=== PATIENT | female | born 1930 | race Caucasian/White ===

== ENCOUNTER 2016-05-24 19:47 | Inpatient (IN) | payer OTHER ==
[2016-05-24 20:02] VITALS: BMI 28.8
--- NOTE | 2016-05-24 20:02 | PDOC ---
History of Present Illness - General History Source: Patient Exam Limitations: No Limitations <Erma Patricia - Last Filed: 05/24/16 21:06> - General History Source: Patient Exam Limitations: No Limitations <TenStacia - Last Filed: 05/28/16 09:27> - General Chief Complaint: Chest Pain Stated Complaint: CHEST PAIN Time Seen by Provider: 05/24/16 20:02 - History of Present Illness Initial Comments: 05/24/16 21:07 The patient is an 85-year-old female, with a significant past medical history of afib, hypercholesterolemia, hyperthyroidism, who presents to the ED with shoulder pain today. The pts pain has been intermittent since last night and is exacerbated with movement. Pt also reports having fluctuating BP levels. Her BP was noted to be 202/140 in the morning and quickly dropped down after taking her medication. Pts last stress test was 2 years ago and was normal. Patient reports cough. Patient denies any fever, chills, nausea, vomiting, diarrhea, abdominal pain, shortness of breath, or chest pain. Risk Assessment Consultant: Dr. Barclay (Erma Patricia) Past History <Erma Patricia - Last Filed: 05/24/16 21:06> - Past Medical History Anemia: No Asthma: No Cancer: No Cardiac Disorders: Yes (A-fib) CVA: No COPD: No CHF: No Dementia: No Diabetes: No GI Disorders: Yes (constipatipn) Disorders: No HTN: Yes Hypercholesterolemia: Yes Liver Disease: No Seizures: No Thyroid Disease: Yes (hypothyroid) - Surgical History Abdominal Surgery: No Appendectomy: No Cardiac Surgery: Yes (CARDIAC CATH) Cholecystectomy: No Lung Surgery: No Neurologic Surgery: No Orthopedic Surgery: No - Psycho/Social/Smoking Cessation Hx Anxiety: No Suicidal Ideation: No Smoking Status: No Smoking History: Never smoked Have you smoked in the past 12 months: No Number of Cigarettes Smoked Daily: 0 Information on smoking cessation initiated: No Hx Alcohol Use: No Drug/Substance Use Hx: No Substance Use Type: None Hx Substance Use Treatment: No <Stacia Caal - Last Filed: 05/28/16 09:27> - Past Medical History Allergies/Adverse Reactions: Allergies Allergy/AdvReac Type Severity Reaction Status Date / Time cortisone AdvReac Verified 05/24/16 20:00 Home Medications: Ambulatory Orders Levothyroxine [Synthroid -] 50 mcg PO DAILY 03/09/12 Rosuvastatin Calcium [Crestor] 5 mg PO HS 03/09/12 Isosorbide Mononitrate 20 mg PO DAILY 02/07/15 Rivaroxaban [Xarelto -] 15 mg PO DAILY 02/07/15 Hydrochlorothiazide [Hctz -] 12.5 mg PO DAILY 05/25/16 Losartan Potassium [Cozaar -] 50 mg PO DAILY 05/25/16 Metoprolol Succinate [Toprol Xl -] 25 mg PO DAILY 05/25/16 Cardiac Specific PMH - Complaint Specific PMHX Pacemaker: No <Stacia Caal - Last Filed: 05/28/16 09:27> Review of Systems <Erma Patricia - Last Filed: 05/24/16 21:06> <Stacia Caal - Last Filed: 05/28/16 09:27> - Review of Systems Comments:: 05/24/16 21:07 GENERAL/CONSTITUTIONAL: No: fever, chills, weakness, loss of appetite. HEAD, EYES, EARS, NOSE AND THROAT: No: change in vision, ear pain, discharge, sore throat, throat swelling. CARDIOVASCULAR: No: chest pain, lightheadedness, palpitations, syncope RESPIRATORY: No: shortness of breath, wheezing, hemoptysis, stridor. Yes: cough GASTROINTESTINAL: No: nausea, vomiting, abdominal cramping, diarrhea, rectal bleeding, constipation. GENITOURINARY: No: dysuria, hematuria, frequency, urgency, flank pain. MUSCULOSKELETAL: No: back pain, neck pain, joint pain, muscle swelling. Yes: shoulder pain SKIN AND BREASTS: No: lesions, pallor, rash or easy bruising. NEUROLOGIC: No: headache, vertigo, paresthesias, weakness ENDOCRINE: No: unexplained weight gain or loss HEMATOLOGIC/LYMPHATIC: No: anemia, easy bleeding, swelling nodes (Erma Patricia) *Physical Exam <Erma Patricia - Last Filed: 05/24/16 21:06> <Stacia Caal - Last Filed: 05/28/16 09:27> - Vital Signs Last Vital Signs Temp Pulse Resp BP Pulse Ox 97.5 F L 62 18 143/68 97 05/28/16 08:45 05/28/16 08:55 05/28/16 08:55 05/28/16 08:55 05/27/16 22:00 - Physical Exam Comments: 05/24/16 21:08 GENERAL: The patient is in no acute distress. HEAD: Normal with no signs of trauma. EYES: PERRLA, EOMI, sclera anicteric, conjunctiva clear. ENT: Ears normal, nares patent, oropharynx clear without exudates. Moist mucous membranes. NECK: Normal range of motion, supple without lymphadenopathy, JVD, or masses. LUNGS: Breath sounds equal, clear to auscultation bilaterally. No wheezes, and no crackles. HEART:Regular rate and rhythm, normal S1 and S2 without murmur, rub or gallop. ABDOMEN: Soft, nontender, normoactive bowel sounds. No guarding, no rebound. EXTREMITIES: Normal range of motion, no edema. No clubbing or cyanosis. No erythema, or tenderness. NEUROLOGICAL: Cranial nerves II through XII grossly intact. Normal speech. No focal neurological deficits. MUSCULOSKELETAL: Back non-tender to palpation, no CVA tenderness SKIN: Warm, Dry, normal turgor, no rashes or lesions noted. (Erma Patricia) Heart Score/ECG Review <Erma Patricia - Last Filed: 05/24/16 21:06> #1 ECG reviewed & interpreted by me at: 21:36 <Stacia Caal - Last Filed: 05/28/16 09:27> #1 05/24/16 21:36 Twelve-lead EKG was performed and reviewed by me. Afib rate of 99bpm. The axis is normal. The intervals are normal - QRS:106ms, QTc:454ms. There are no ST elevations. T wave inversions I, AVL, v4-v6 (compared to EKG from 2012) (Stacia Caal) ED Treatment Course - LABORATORY CBC & Chemistry Diagram: 05/26/16 05:35 05/26/16 05:35 <Stacia Caal - Last Filed: 05/28/16 09:27> - ADDITIONAL ORDERS Additional order review: 05/24/16 23:44 Urine Culture - Final Urine - Urine Clean Catch Contaminated: Please Repeat 05/24/16 20:10 RBC 5.20 MCV 89.7 MCHC 32.9 RDW 14.6 MPV 9.3 Neutrophils % 60.6 Lymphocytes % 25.4 Monocytes % 11.6 H D Eosinophils % 1.5 D Basophils % 0.9 - RADIOLOGY Radiology Studies Ordered: Category Date Time Status CHEST X-RAY PORTABLE* [RAD] Stat Radiology 05/24/16 22:39 Completed - Medications Given in the ED: ED Medications Discontinued Medications Generic Name Dose Route Start Last Admin Trade Name Kenna PRN Reason Stop Dose Admin Sodium Chloride 1,000 mls @ 75 mls/hr 05/24/16 22:16 05/24/16 22:41 Normal Saline - IV 05/25/16 11:35 75 mls/hr ASDIR STA Administration Dextrose/Sodium Chloride 1,000 mls @ 75 mls/hr 05/25/16 03:25 05/25/16 03:30 D5-1/2ns - IV 75 mls/hr ASDIR DAVINA Administration Losartan Potassium 50 mg 05/25/16 16:45 05/26/16 09:54 Cozaar - PO 50 mg DAILY DAVINA Administration Losartan Potassium 25 mg 05/26/16 22:00 05/26/16 21:49 Cozaar - PO 25 mg BID DAVINA Administration Losartan Potassium 25 mg 05/27/16 06:15 05/27/16 06:15 Cozaar - PO 05/27/16 06:16 25 mg ONCE ONE Administration Medical Decision Making <Erma Patricia - Last Filed: 05/24/16 21:06> <Stacia Caal - Last Filed: 05/28/16 09:27> - Medical Decision Making 05/24/16 20:02 A portion of this note was documented by scribe services under my direction. I have reviewed the details of the note, within reason, and agree with the documentation with the following case summary and management plan written by me. Nursing documentation reviewed and incorporated into medical decision making 05/24/16 21:37 This is an 85 yo F with a history of afib, hypercholesterolemia, hyperthyroidism , who presents to the ED with shoulder pain today. the patient states that the pain has been intermittent since last evening Pain is located in both shoulders, and the upper chest No exacerbating factors Pain worsens when her blood pressure dropps (+) cough No fever or shortness of breath No palpitations Pt was seen by her PMD 3 days ago Apparently, she was noted to have lower extremity edema She was started on lasix which has improved her lower extremity edema The patient states that her blood pressure has been labile In the morning, BP was noted to be 202/140 and then rapidly drops down after her medications. This has been present for the past year Patient reports cough. Will do labs Will do EKG Will re assess 05/24/16 21:43 05/24/16 22:50 Laboratory Tests 05/24/16 05/24/16 20:10 20:10 WBC 8.8 D Hgb 15.3 Hct 46.7 H Plt Count 241 Neutrophils % 60.6 Lymphocytes % 25.4 BUN 31 H Creatinine 1.5 H Creatine Kinase 31 Troponin I < 0.02 B-Natriuretic Peptide 2442.97 H Pt BP Low States that she gets dizzy when she stands Would send for CTA given shoulder symptoms but creatinine is elevated Will hydrate for now CXR pending Will re assess Case reviewed with hyperbaric technologist Given no fever, no focal findings patient can be hydrated and re assessed for persistent hypotension 05/25/16 00:10 Laboratory Tests 05/24/16 23:44 Urine Blood Negative Urine Nitrite Negative Ur Leukocyte Esterase Trace H Urine RBC 2 Urine WBC 13 Lactate pending Pt started on IV fluids Will admit to tele BP Improved to 103/60s Case reviewed with ICU Would hold on ICU transfer until lactate is back AND after NS bolus 05/25/16 00:40 Laboratory Tests 05/24/16 23:44 Lactic Acid 1.[address] on Tele (Stacia Caal) *DC/Admit/Observation/Transfer <Erma Patricia - Last Filed: 05/24/16 21:06> - Discharge Dispostion Admit: Yes <Stacia Caal - Last Filed: 05/28/16 09:27> Diagnosis at time of Disposition: Chest pain Qualifiers: Chest pain type: unspecified Qualified Code(s): R07.9 - Chest pain, unspecified UTI (urinary tract infection) Qualifiers: Urinary tract infection type: acute cystitis Hematuria presence: without hematuria Qualified Code(s): N30.00 - Acute cystitis without hematuria - Discharge Dispostion Condition at time of disposition: Stable - Referrals - Attestations Scribe Attestion: 05/24/16 21:08 Documentation prepared by Erma Patricia, acting as medical imaging specialist for Stacia Caal MD. (Erma Patricia)
[2016-05-24 21:54] LABS: BASOPHIL 0.9 % (0-2.0); EOSINOPHIL 1.5 % (0-4.5); MCH 29.5 pg (25.7-33.7); MCHC 32.9 g/dl (32.0-36.0); MEAN CELL VOLUME 89.7 fl (80-96); MEAN PLT VOLUME 9.3 fl (7.5-11.1); NEUTROPHILS 60.6 % (42.8-82.8); PLATELET COUNT 241 K/MM3 (134-434); RDW 14.6 % (11.6-15.6); WHITE BLOOD COUNT 8.8 K/mm3 (4.0-10.0)
[2016-05-24 22:07] LABS: INR 1.87 (0.82-1.09); PROTHROMBIN TIME (PATIENT) 20.8 SEC (9.98-11.88)
[2016-05-24] MEDS ORDERED: SODIUM CHLORIDE 1,000 ML IV STA (22:16)
[2016-05-24 22:26] LABS: ALBUMIN 3.2 g/dl (3.4-5.0); ANION GAP 8 (8-16); BILIRUBIN,TOTAL 0.5 mg/dL (0.2-1.0); CALCIUM 10.1 mg/dL (8.5-10.1); CO2 26 mmol/L (21-32); CREATININE 1.5 mg/dL (0.55-1.02); GLUCOSE,RANDOM 117 mg/dL (74-106); MAGNESIUM 2.2 mg/dL (1.8-2.4); SGOT/AST 15 U/L (15-37); SGPT/ALT 24 U/L (12-78); TOT PROT 6.3 g/dl (6.4-8.2)
[2016-05-24 22:29] LABS: ALK PHOS 110 U/L (45-117); TROPONIN I < 0.02 ng/ml (0.00-0.05)
[2016-05-24 23:53] LABS: URINE APPEARANCE CLEAR; URINE BILIRUBIN NEGATIVE (NEGATIVE); URINE BLOOD NEGATIVE (NEGATIVE); URINE COLOR YELLOW; URINE GLUCOSE (UA) NEGATIVE (NEGATIVE); URINE KETONE NEGATIVE (NEGATIVE); URINE NITRITE NEGATIVE (NEGATIVE); URINE PROTEIN NEGATIVE (NEGATIVE); URINE UROBILINOGEN NEGATIVE E.U./dl (0.2-1.0)
[2016-05-24 23:56] LABS: URINE LEUK ESTERASE TRACE (NEGATIVE)
[2016-05-24 23:57] LABS: URINE HYALINE CAST 5 /lpf; URINE MUCUS RARE; URINE RBC 2 /hpf (0-3); URINE WBC 13 /hpf (3-5)
[2016-05-25] MEDS ORDERED: DEXTROSE 5%-0.45% SALINE 1,000 ML IV SCH (03:25)
[2016-05-25] MEDS: LEVOTHYROXINE NA 50 MCG TABLET (FP) PO SCH (06:18)
[2016-05-25 07:32] LABS: BASOPHIL 0.4 % (0-2.0); EOSINOPHIL 1.6 % (0-4.5); MCH 30.1 pg (25.7-33.7); MCHC 33.1 g/dl (32.0-36.0); MEAN CELL VOLUME 90.9 fl (80-96); MEAN PLT VOLUME 9.6 fl (7.5-11.1); NEUTROPHILS 62.6 % (42.8-82.8); PLATELET COUNT 192 K/MM3 (134-434); RDW 14.7 % (11.6-15.6); WHITE BLOOD COUNT 8.3 K/mm3 (4.0-10.0)
[2016-05-25 07:59] LABS: ANION GAP 9 (8-16); BILIRUBIN,TOTAL 0.7 mg/dL (0.2-1.0); CALCIUM 9.3 mg/dL (8.5-10.1); CO2 23 mmol/L (21-32); CREATININE 1.3 mg/dL (0.55-1.02); GLUCOSE,RANDOM 115 mg/dL (74-106); SGOT/AST 16 U/L (15-37); SGPT/ALT 20 U/L (12-78); TOT PROT 5.6 g/dl (6.4-8.2)
[2016-05-25 08:02] LABS: ALK PHOS 99 U/L (45-117); TROPONIN I < 0.02 ng/ml (0.00-0.05)
[2016-05-25] MEDS: RIVAROXABAN 15 MG TABLET PO SCH (09:14)
--- NOTE | 2016-05-25 09:27 | PN ---
Progress Note (short form) - Note Progress Note: Cardiology Consult Dictated Briefly, 85F well known to our service from the office with non-obstructive CAD on cath '11, chronic labile HTN, CKD, chronic diastolic CHF now admitted with a multitude of complaints including labile BP at home, left shoulder pain and dizziness. Thus far, cardiac enzymes negative with no new arrhythmias noted. Plan: 1. Labile BP: would check orthostatics 2. D/C IVF 3. Based on orthostatic findings and clinical course, would try to resume PO Lasix within next 24-28 hours. On admission, given IVF due to elevated BUN/Creat ratio 3. Echo 4. Chest CTA planned to rule out aortic pathology (chest pain with back and shoulder component) when creatinine allows. 5. Would likely stress as inpatient prior to discharge if she allows, has refused outpatient stress testing recently.
[2016-05-25] MEDS: METOPROLOL SUCCINATE 25 MG TAB.SR.24H (FP) PO SCH (16:56)
[2016-05-25] MEDS: LOSARTAN POTASSIUM 50 MG TABLET (FP) PO SCH (16:56)
--- NOTE | 2016-05-25 20:13 | HP ---
Admitting History and Physical - Admission Chief Complaint: Labile HTN History of Present Illness: Pt is a 85 y/o female w/ PMH significant for HTN, HLD, CAD, Afib, chronic diastolic heart failure, CKD and hyperthyroidism who presented to the ER w/ multiple complaints including dizziness. When pt awoke she found her BP to be 202/140 however in the ER she was found to have diastolic BP of 158. She denies any chest pain although she is complaining of lt shoulder pain. No SOB and no palpitations. History Source: Patient - Past Medical History Cardiovascular: Yes: AFIB, CAD, CHF, HTN, Hyperlipdemia Renal/: Yes: Renal Failure ...: No Endocrine: Yes: Hyperthyroidism - Past Surgical History Past Surgical History: Yes: None - Smoking History Smoking history: Never smoked Have you smoked in the past 12 months: No Aproximately how many cigarettes per day: 0 - Alcohol/Substance Use Hx Alcohol Use: No - Social History ADL: Independent History of Recent Travel: No Home Medications - Allergies Allergies/Adverse Reactions: Allergies Allergy/AdvReac Type Severity Reaction Status Date / Time cortisone AdvReac Verified 05/24/16 20:00 - Home Medications Home Medications: Ambulatory Orders Levothyroxine [Synthroid -] 50 mcg PO DAILY 03/09/12 Rosuvastatin Calcium [Crestor] 5 mg PO HS 03/09/12 Isosorbide Mononitrate 20 mg PO DAILY 02/07/15 Rivaroxaban [Xarelto -] 15 mg PO DAILY 02/07/15 Hydrochlorothiazide [Hctz -] 12.5 mg PO DAILY 05/25/16 Losartan Potassium [Cozaar -] 50 mg PO DAILY 05/25/16 Metoprolol Succinate [Toprol Xl -] 25 mg PO DAILY 05/25/16 Family Disease History - Family Disease History Family History: Unremarkable Family Disease History: Heart Disease: Son Review of Systems - Review of Systems Constitutional: reports: Other (Dizziness) Eyes: reports: No Symptoms HENT: reports: No Symptoms Neck: reports: No Symptoms Cardiovascular: reports: No Symptoms Respiratory: reports: No Symptoms Gastrointestinal: reports: No Symptoms Physical Examination Vital Signs: Vital Signs Temperature 98.1 F 05/25/16 15:00 Pulse Rate 69 05/25/16 15:00 Respiratory Rate 18 05/25/16 15:00 Blood Pressure 188/77 05/25/16 15:00 O2 Sat by Pulse Oximetry (%) 94 L 05/25/16 09:00 Constitutional: Yes: Well Nourished Eyes: Yes: WNL HENT: Yes: WNL Neck: Yes: WNL Cardiovascular: Yes: WNL, Regular Rate and Rhythm Respiratory: Yes: WNL, Regular, CTA Bilaterally Gastrointestinal: Yes: WNL, Normal Bowel Sounds, Soft, Abdomen, Obese Musculoskeletal: Yes: WNL Extremities: Yes: WNL Edema: No Neurological: Yes: WNL, Alert, Oriented Labs: CBC, BMP 05/25/16 05:35 05/25/16 05:35 Problem List - Problems (1) Chest pain Code(s): R07.9 - CHEST PAIN, UNSPECIFIED Qualifiers: Chest pain type: unspecified Qualified Code(s): R07.9 - Chest pain, unspecified Assessment/Plan 1. Labile HTN Pt initially started on IVF due to elevated bun/creatinine BP meds held and will be restarted as needed Cardio consult 2. HLD/CAD Cont crestor 3. Hyperthyroidism Cont levothyroxine Check TSH
[2016-05-25] MEDS ORDERED: PT OWN MED DRAWER 7, Y5N ONE (21:46)
[2016-05-25] MEDS: ROSUVASTATIN CA 5 MG TABLET (FP) PO SCH (23:08)
[2016-05-26] MEDS: LEVOTHYROXINE NA 50 MCG TABLET (FP) PO SCH (06:44)
[2016-05-26 07:18] LABS: BASOPHIL 0.5 % (0-2.0); EOSINOPHIL 3.3 % (0-4.5); MCH 30.2 pg (25.7-33.7); MCHC 33.4 g/dl (32.0-36.0); MEAN CELL VOLUME 90.2 fl (80-96); MEAN PLT VOLUME 9.2 fl (7.5-11.1); NEUTROPHILS 45.6 % (42.8-82.8); PLATELET COUNT 181 K/MM3 (134-434); RDW 14.9 % (11.6-15.6); WHITE BLOOD COUNT 5.4 K/mm3 (4.0-10.0)
[2016-05-26 07:45] LABS: BILIRUBIN,TOTAL 0.9 mg/dL (0.2-1.0); CALCIUM 9.9 mg/dL (8.5-10.1); CREATININE 1.2 mg/dL (0.55-1.02); TOT PROT 5.9 g/dl (6.4-8.2)
[2016-05-26 07:54] LABS: THYROID STIMULATING HORMONE 1.9 uIU/ml (0.358-3.74)
[2016-05-26] MEDS: METOPROLOL SUCCINATE 25 MG TAB.SR.24H (FP) PO SCH (09:54)
[2016-05-26] MEDS: RIVAROXABAN 15 MG TABLET PO SCH (09:54)
[2016-05-26] MEDS: LOSARTAN POTASSIUM 50 MG TABLET (FP) PO SCH (09:54)
--- NOTE | 2016-05-26 09:55 | CONS ---
DATE OF CONSULTATION: 05/25/2016 The consultation was requested by Dr. Neal for chest pain. The patient is an 85-year-old female, well known to our service from office care. She has a past medical history of chronic hypertension, labile hypertension at times, hypertensive heart disease, chronic diastolic CHF, paroxysmal atrial fibrillation, maintained on Xarelto, nonobstructive coronary artery disease, based on catheterization in 2010, with chronic presumed small-vessel disease and chronic angina on that basis, hyperlipidemia, hypothyroidism, who now presents to the hospital with multiple complaints similar to previous chronic complaints she has had through the years. She comes in complaining of labile hypertension with blood pressure initially over 200 systolic in the emergency department. She also felt dizzy and had an episode of fleeting substernal chest pain and left shoulder pain as well as central back pain that occurred within the 48 hours prior to presentation. She now feels better, with resolution of the chest and shoulder pain. She is no longer dizzy. Her BUN and creatinine ratio were noted to be elevated from baseline on presentation and she was given IV fluids overnight. A CTA of the chest was ordered in the emergency department, given her chest and back pain complaints, to rule out aortic pathology. It has been placed on hold due to her elevated creatinine. This morning she appears comfortable and at baseline. She is in no acute distress. Her past medical history is as outlined above. She is allergic to CORTISONE. Home medications include Toprol XL 25 mg daily, losartan 50 mg daily, hydrochlorothiazide 12.5 mg daily, Crestor 5 mg daily, Xarelto 15 mg, Synthroid 50 mcg daily, Imdur 20 mg daily. Family history is noncontributory. SOCIAL HISTORY: Lives with her son. She is . No alcohol, tobacco, or illicit drugs. PHYSICAL EXAMINATION: Vital signs: Afebrile, temperature 97.9. Pulse 59 to 61. Current blood pressure 126/50, on presentation 128/76. Patient reports systolic pressure of 200 at home. O2 saturation has been 97 to 100 on room air. Neck: Supple. No JVD, no bruit. Heart: S1, 2. Regular. Chest: With decreased breath sounds at the bases. Abdomen: Soft, nontender. Extremities: No edema. Pulses: 2+ carotid, 2+ radial, and 2+ dorsalis pedis pulses bilaterally. EKG: Atrial fibrillation with left ventricular hypertrophy and secondary ST changes. Chest x-ray, read by Dr. Mak: No acute pathology or changes since January 2015. LABORATORIES: White count 8.3, hematocrit 44.2, platelet count 192, INR 1.87, sodium 145, potassium 3.9, BUN 32, creatinine 1.3. LFTs normal. CK and troponin negative x2 sets. BNP 2442. IMPRESSION: An 85-year-old female with nonobstructive coronary artery disease, chronic labile hypertension, chronic renal insufficiency, chronic diastolic dysfunction, now admitted with a multitude of complaints, including labile blood pressure, episodes of left shoulder and possibly chest pain, intermittent dizziness. Thus far, cardiac enzymes are negative, with no new arrhythmias noted on telemetry. PLAN: 1. Regarding her chronic labile blood pressure, will check orthostatics. Hold Cozaar for now. Hold Imdur for now. Monitor on telemetry to determine possibly the need to adjust Toprol. 2. Discontinue IV fluids. 3. Based on orthostatic findings and clinical course, would try to resume p.o. Lasix within the next 48 hours, as she is prone to diastolic CHF. On admission, she was given IV fluids overnight by the ER due to elevated BUN/creatinine ratio, which have now improved. 4. Echocardiogram. 5. A CTA of the chest is planned to rule out aortic pathology, given her chest pain and back and shoulder complaints. This will be performed when creatinine allows, does not appear to be acutely needed at this time. 6. Would likely recommend inpatient stress test prior to discharge if she allows, given her chronic chest pain complaints. Most recently she was seen in the office by Dr. Timmons and offered a stress test, which she refused. Thank you for the consultation. ELSA BRADLEY M.D. [id number]
--- NOTE | 2016-05-26 10:54 | PN ---
Progress Note, Physician - Current Medication List Current Medications: Active Medications Levothyroxine Sodium (Synthroid -) 50 mcg PO DAILY@0700 [facility] Last Admin: 05/26/16 06:44 Dose: 50 mcg Losartan Potassium (Cozaar -) 50 mg PO DAILY [facility] Last Admin: 05/26/16 09:54 Dose: 50 mg Metoprolol Succinate (Toprol Xl -) 25 mg PO DAILY [facility] Last Admin: 05/26/16 09:54 Dose: 25 mg Rivaroxaban (Xarelto -) 15 mg PO DAILY [facility] Last Admin: 05/26/16 09:54 Dose: 15 mg Rosuvastatin Calcium (Crestor -) 5 mg PO HS [facility] Last Admin: 05/25/16 23:08 Dose: 5 mg - Objective Vital Signs: Vital Signs Temperature 98.2 F 05/26/16 05:29 Pulse Rate 54 L 05/26/16 08:57 Respiratory Rate 18 05/26/16 08:57 Blood Pressure 182/77 05/26/16 08:57 O2 Sat by Pulse Oximetry (%) 95 05/26/16 09:00 Labs: CBC, BMP 05/26/16 05:35 05/26/16 05:35 INR, PTT INR 1.87 (0.82-1.09) H D 05/24/16 20:10 Assessment/Plan 85 year old woman with a history of non-obstructive CAD on , chronic labile HTN, CKD, chronic diastolic CHF now admitted with a multitude of complaints including labile BP at home, left shoulder pain and dizziness. Plan: Labile BP: 1 reading of 77/44 on 05/24, since then BP has been elevated -check orthostatic BP -cont Toprol and losartan Chronic diastolic CHF -currently euvolemic -once BP controlled and if does not display orthostatic hypotension then can resume po Lasix Chest pain-atypical -f/up echo -f/up CTA chest as ordered -plan for persantine stress test prior to discharge, likely tomorrow, need CTA chest prior to stress test
--- NOTE | 2016-05-26 14:21 | PN ---
Progress Note (short form) - Note Progress Note: Pts orthostatic bp checked and showed a significant drop from SBP 180mmHg lying down to 120mmhg standing. Difficult situation to treat uncontrolled HTN while lying but with large drop and relative orthostatic hypotension on standing. -Will change losartan to 25mg bid -cont toprol -avoid diuretics for now -will need to adjust medications to attempt to achieve adequate HTN control approx SBP 150mmHg while avoid orthostatic hypotension.
--- NOTE | 2016-05-26 16:15 | EKG ---
Test Reason : Blood Pressure : / mmHG Vent. Rate : 099 BPM Atrial Rate : 375 BPM P-R Int : 000 ms QRS Dur : 106 ms QT Int : 354 ms P-R-T Axes : 000 014 189 degrees QTc Int : 454 ms ATRIAL FIBRILLATION MINIMAL VOLTAGE CRITERIA FOR LVH, MAY BE NORMAL VARIANT CANNOT RULE OUT INFERIOR INFARCT , AGE UNDETERMINED ABNORMAL ECG WHEN COMPARED WITH ECG OF 07-FEB-2015 12:10, ATRIAL FIBRILLATION HAS REPLACED SINUS RHYTHM T WAVE VARIATION Confirmed by BLAIRE JOY MD ([id number]) on 05/26/2016 4:15:33 PM Referred By: Confirmed By:BLAIRE JOY MD
[2016-05-26] MEDS: ROSUVASTATIN CA 5 MG TABLET (FP) PO SCH (21:49)
[2016-05-26] MEDS: LOSARTAN POTASSIUM 25 MG TABLET PO SCH (21:49)
--- NOTE | 2016-05-26 23:08 | PN ---
Progress Note, Physician History of Present Illness: Pt w/ fluctuating BP - Current Medication List Current Medications: Active Medications Levothyroxine Sodium (Synthroid -) 50 mcg PO DAILY@0700 [facility] Last Admin: 05/26/16 06:44 Dose: 50 mcg Losartan Potassium (Cozaar -) 25 mg PO BID [facility] Last Admin: 05/26/16 21:49 Dose: 25 mg Metoprolol Succinate (Toprol Xl -) 25 mg PO DAILY [facility] Last Admin: 05/26/16 09:54 Dose: 25 mg Rivaroxaban (Xarelto -) 15 mg PO DAILY [facility] Last Admin: 05/26/16 09:54 Dose: 15 mg Rosuvastatin Calcium (Crestor -) 5 mg PO HS [facility] Last Admin: 05/26/16 21:49 Dose: 5 mg - Objective Vital Signs: Vital Signs Temperature 98.1 F 05/26/16 16:25 Pulse Rate 52 L 05/26/16 16:25 Respiratory Rate 18 05/26/16 16:25 Blood Pressure 152/86 05/26/16 16:25 O2 Sat by Pulse Oximetry (%) 95 05/26/16 09:00 Constitutional: Yes: Well Nourished Neck: Yes: Supple Cardiovascular: Yes: WNL, Regular Rate and Rhythm Respiratory: Yes: WNL, Regular, CTA Bilaterally Gastrointestinal: Yes: WNL, Normal Bowel Sounds, Soft Labs: CBC, BMP 05/26/16 05:35 05/26/16 05:35 INR, PTT INR 1.87 (0.82-1.09) H D 05/24/16 20:10 Problem List - Problems (1) Hypertension Assessment/Plan: Pt w/ orthostatic hypotension As per cardio Antihypertensives being adjusted Code(s): I10 - ESSENTIAL (PRIMARY) HYPERTENSION Assessment/Plan 1.HLD/CAD Cont lipitor Will ada ASA 3.AFIB Heart rate stable Parosymal afib Cont xarelto 2.Hypothyroidism Cont levothyroxine
[2016-05-27] MEDS: LEVOTHYROXINE NA 50 MCG TABLET (FP) PO SCH (06:00)
[2016-05-27] MEDS: LOSARTAN POTASSIUM 25 MG TABLET PO SCH ×2 (06:13→09:25)
[2016-05-27] MEDS ORDERED: LOSARTAN POTASSIUM 25 MG TABLET PO ONE (06:15)
[2016-05-27] MEDS ORDERED: PT OWN MED DRAWER 7, Y5N ONE (08:54)
--- NOTE | 2016-05-27 08:57 | PN ---
Progress Note, Physician Chief Complaint: sitting in chair, comfortably eating farida Has right shoulder pain, likely arthritic No further CP Vitals done yesterday late afternoon showed sig orthostatic changes. TELE: Reviewed--Mild resting sinus alfreda in mid 50s Echo reviewed: Nl LVEF, moderate MR History of Present Illness: supine BPs remain elevated, above goa in 160-180 range - Current Medication List Current Medications: Active Medications Levothyroxine Sodium (Synthroid -) 50 mcg PO DAILY@0700 [facility] Last Admin: 05/27/16 06:00 Dose: 50 mcg Losartan Potassium (Cozaar -) 25 mg PO BID [facility] Last Admin: 05/26/16 21:49 Dose: 25 mg Metoprolol Succinate (Toprol Xl -) 25 mg PO DAILY [facility] Last Admin: 05/26/16 09:54 Dose: 25 mg Rivaroxaban (Xarelto -) 15 mg PO DAILY [facility] Last Admin: 05/26/16 09:54 Dose: 15 mg Rosuvastatin Calcium (Crestor -) 5 mg PO HS [facility] Last Admin: 05/26/16 21:49 Dose: 5 mg - Objective Vital Signs: Vital Signs Temperature 97.6 F 05/27/16 06:00 Pulse Rate 56 L 05/27/16 06:00 Respiratory Rate 18 05/27/16 06:00 Blood Pressure 180/76 05/27/16 06:00 O2 Sat by Pulse Oximetry (%) 95 05/26/16 22:00 Constitutional: Yes: Calm Eyes: Yes: Conjunctiva Clear Cardiovascular: Yes: Regular Rate and Rhythm Respiratory: Yes: CTA Bilaterally Gastrointestinal: Yes: Soft Edema: No Neurological: Yes: Alert, Oriented ...Motor Strength: WNL Labs: CBC, BMP 05/26/16 05:35 05/26/16 05:35 INR, PTT INR 1.87 (0.82-1.09) H D 05/24/16 20:10 Laboratory Tests 05/24/16 05/25/16 05/26/16 20:10 05:35 05:35 Sodium 144 Potassium 4.2 BUN 30 H Creatinine 1.2 H Troponin I < 0.02 < 0.02 Assessment/Plan IMP: Orthostatic hypotension Atypical CP Moderate MR PAF REC: 1. Orthostatic hypotension: moderate supine hypertension poses a problem for evening and nocturnal BP control. Would try to gently escalate evening dose of --Losartan to 50mg to provide coverage in late evening and through the night while she is supine. Continue 25mg in AM. She may continue to have drops in SBP when standing, but if not symptomatic, can follow as outpatient and advise her on lifestyle measures to avoid orthostatic sx (slow rising etc) 2. Atypical CP: -Cardiac enzymes negative with normal LVEF, h/o non-obstx CAD -Plan for Persantine MIBI in AM 3. Moderate MR: -Cont. ARB as tolerated for afterload reduction -yearly echo f/u 4. PAF: -To continue Xarelto, adjusted for GFR -Remains in NSR, would not titrate Toprol further as her baseline heart rate is in the mid 50s in sinus
[2016-05-27] MEDS: RIVAROXABAN 15 MG TABLET PO SCH (09:25)
[2016-05-27] MEDS: METOPROLOL SUCCINATE 25 MG TAB.SR.24H (FP) PO SCH (09:25)
[2016-05-27] MEDS: DOCUSATE SODIUM 100 MG CAPSULE (FP) PO SCH ×2 (17:14→21:20)
[2016-05-27] MEDS: POLYETHYLENE GLYCOL 3350 119 GM BTL PO SCH (17:14)
[2016-05-27] MEDS: LOSARTAN POTASSIUM 50 MG TABLET (FP) PO SCH (19:16)
[2016-05-27] MEDS: KETOROLAC TROMETHAMINE 30 MG/1 ML VIAL IVPUSH PRN (21:20)
[2016-05-27] MEDS: ROSUVASTATIN CA 5 MG TABLET (FP) PO SCH (21:21)
--- NOTE | 2016-05-27 21:42 | PN ---
Progress Note, Physician History of Present Illness: No new complaints - Current Medication List Current Medications: Active Medications Docusate Sodium (Colace -) 100 mg PO TID [facility] Last Admin: 05/27/16 21:20 Dose: 100 mg Hydralazine HCl (Apresoline Injection -) 10 mg IVPUSH Q2H PRN PRN Reason: SBP OF 170 OR GREATER Ketorolac Tromethamine (Toradol Injection -) 30 mg IVPUSH Q6H PRN PRN Reason: PAIN Stop: 06/01/16 20:51 Last Admin: 05/27/16 21:20 Dose: 30 mg Levothyroxine Sodium (Synthroid -) 50 mcg PO DAILY@0700 [facility] Last Admin: 05/27/16 06:00 Dose: 50 mcg Losartan Potassium (Cozaar -) 50 mg PO DAILY@2000 [facility] Last Admin: 05/27/16 19:16 Dose: 50 mg Losartan Potassium (Cozaar -) 25 mg PO DAILY [facility] Last Admin: 05/27/16 09:25 Dose: 25 mg Metoprolol Succinate (Toprol Xl -) 25 mg PO DAILY [facility] Last Admin: 05/27/16 09:25 Dose: 25 mg Polyethylene Glycol (Miralax (For Daily Use) -) 17 gm PO DAILY [facility] Last Admin: 05/27/16 17:14 Dose: 17 grams Rivaroxaban (Xarelto -) 15 mg PO DAILY [facility] Last Admin: 05/27/16 09:25 Dose: 15 mg Rosuvastatin Calcium (Crestor -) 5 mg PO HS [facility] Last Admin: 05/27/16 21:21 Dose: 5 mg - Objective Vital Signs: Vital Signs Temperature 97.4 F L 05/27/16 14:29 Pulse Rate 51 L 05/27/16 14:29 Respiratory Rate 18 05/27/16 20:38 Blood Pressure 166/62 05/27/16 14:29 O2 Sat by Pulse Oximetry (%) 91 L 05/27/16 20:38 Neck: Yes: Supple Cardiovascular: Yes: WNL, Regular Rate and Rhythm Respiratory: Yes: WNL, Regular, CTA Bilaterally Gastrointestinal: Yes: WNL, Normal Bowel Sounds, Soft Labs: CBC, BMP 05/26/16 05:35 05/26/16 05:35 INR, PTT INR 1.87 (0.82-1.09) H D 05/24/16 20:10 Problem List - Problems (1) Hypertension Assessment/Plan: Pt w/ orthostatic hypotension DC planning for am As per cardio Code(s): I10 - ESSENTIAL (PRIMARY) HYPERTENSION (2) Afib Assessment/Plan: Paroxysmal afib Cont xarelto Heart rate controlled Code(s): I48.91 - UNSPECIFIED ATRIAL FIBRILLATION (3) HLD (hyperlipidemia) Assessment/Plan: Cont crestor Code(s): E78.5 - HYPERLIPIDEMIA, UNSPECIFIED (4) Hypothyroidism Assessment/Plan: Cont levothyroxine Code(s): E03.9 - HYPOTHYROIDISM, UNSPECIFIED
[2016-05-27] MEDS: hydrALAZINE HCL 20 MG/ML VIAL IVPUSH PRN (22:32)
[2016-05-28] MEDS: hydrALAZINE HCL 20 MG/ML VIAL IVPUSH PRN (00:58)
[2016-05-28] MEDS ORDERED: PT OWN MED DRAWER 7, Y5N ONE ×2 (05:43→13:19)
[2016-05-28] MEDS: DOCUSATE SODIUM 100 MG CAPSULE (FP) PO SCH ×3 (06:19→22:04)
[2016-05-28] MEDS: KETOROLAC TROMETHAMINE 30 MG/1 ML VIAL IVPUSH PRN (06:19)
[2016-05-28] MEDS: LEVOTHYROXINE NA 50 MCG TABLET (FP) PO SCH (06:19)
[2016-05-28] MEDS: LOSARTAN POTASSIUM 25 MG TABLET PO SCH (09:09)
[2016-05-28] MEDS: METOPROLOL SUCCINATE 25 MG TAB.SR.24H (FP) PO SCH (09:09)
--- NOTE | 2016-05-28 09:14 | PN ---
Progress Note, Physician Chief Complaint: events noted Suspected acute anxiety episode last evening. History of Present Illness: late evening and early AM BPs remain high with recorded readings during day ok, with orthostatic changes - Current Medication List Current Medications: Active Medications Docusate Sodium (Colace -) 100 mg PO TID [facility] Last Admin: 05/28/16 06:19 Dose: 100 mg Hydralazine HCl (Apresoline Injection -) 10 mg IVPUSH Q2H PRN PRN Reason: SBP OF 170 OR GREATER Last Admin: 05/28/16 00:58 Dose: 10 mg Dipyridamole 43.53 mg/ (Dextrose) 43.53 mls @ 652.95 mls/hr IVPB ONCE ONE Stop: 05/28/16 10:03 Ketorolac Tromethamine (Toradol Injection -) 30 mg IVPUSH Q6H PRN PRN Reason: PAIN Stop: 06/01/16 20:51 Last Admin: 05/28/16 06:19 Dose: 30 mg Levothyroxine Sodium (Synthroid -) 50 mcg PO DAILY@0700 [facility] Last Admin: 05/28/16 06:19 Dose: 50 mcg Losartan Potassium (Cozaar -) 50 mg PO DAILY@2000 [facility] Last Admin: 05/27/16 19:16 Dose: 50 mg Losartan Potassium (Cozaar -) 25 mg PO DAILY [facility] Last Admin: 05/28/16 09:09 Dose: 25 mg Metoprolol Succinate (Toprol Xl -) 25 mg PO DAILY [facility] Last Admin: 05/28/16 09:09 Dose: 25 mg Polyethylene Glycol (Miralax (For Daily Use) -) 17 gm PO DAILY [facility] Last Admin: 05/27/16 17:14 Dose: 17 grams Rivaroxaban (Xarelto -) 15 mg PO DAILY [facility] Last Admin: 05/27/16 09:25 Dose: 15 mg Rosuvastatin Calcium (Crestor -) 5 mg PO HS [facility] Last Admin: 05/27/16 21:21 Dose: 5 mg - Objective Vital Signs: Vital Signs Temperature 97.5 F L 05/28/16 08:45 Pulse Rate 62 05/28/16 08:55 Respiratory Rate 18 05/28/16 08:55 Blood Pressure 143/68 05/28/16 08:55 O2 Sat by Pulse Oximetry (%) 97 05/27/16 22:00 Constitutional: Yes: No Distress Cardiovascular: Yes: Regular Rate and Rhythm Respiratory: Yes: CTA Bilaterally Gastrointestinal: Yes: Soft Edema: No Neurological: Yes: Alert ...Motor Strength: WNL Labs: CBC, BMP 05/26/16 05:35 05/26/16 05:35 INR, PTT INR 1.87 (0.82-1.09) H D 05/24/16 20:10 - ....Imaging EKG: Image Reviewed (TELE: mild sinus alfreda in 50s, no pauses) Assessment/Plan IMP: Orthostatic hypotension Atypical CP Moderate MR PAF REC: 1. Orthostatic hypotension: Late evening and early AM BP remains high, with concomitant anxiety sx. Will Continue Losartan 50mg Qhs and add Norvasc 2.5 mg in evening, to be titrated to BP. She may continue to have drops in SBP when standing, but if not symptomatic, can follow as outpatient and advise her on lifestyle measures to avoid orthostatic sx (slow rising etc) 2. Atypical CP: -Cardiac enzymes negative with normal LVEF, h/o non-obstx CAD -Plan for Persantine MIBI today. 3. Moderate MR: -Cont. ARB as tolerated for afterload reduction -yearly echo f/u 4. PAF: -To continue Xarelto, adjusted for GFR -Remains in NSR, would not titrate Toprol further as her baseline heart rate is in the mid 50s in sinus
[2016-05-28] MEDS ORDERED: DIPYRIDAMOLE STRESS TEST IVPB ONE (10:00)
[2016-05-28] MEDS ORDERED: WATER IVPB ONE (10:00)
[2016-05-28] MEDS ORDERED: DEXTROSE 5% IVPB ONE (10:00)
--- NOTE | 2016-05-28 12:04 | EKG ---
Test Reason : Blood Pressure : / mmHG Vent. Rate : 070 BPM Atrial Rate : 070 BPM P-R Int : 160 ms QRS Dur : 092 ms QT Int : 408 ms P-R-T Axes : 076 036 132 degrees QTc Int : 440 ms POOR DATA QUALITY, INTERPRETATION MAY BE ADVERSELY AFFECTED NORMAL SINUS RHYTHM NONSPECIFIC ST AND T WAVE ABNORMALITY ABNORMAL ECG WHEN COMPARED WITH ECG OF 24-MAY-2016 20:09, SINUS RHYTHM HAS REPLACED ATRIAL FIBRILLATION T WAVE INVERSION NO LONGER EVIDENT IN INFERIOR LEADS NONSPECIFIC T WAVE ABNORMALITY HAS REPLACED INVERTED T WAVES IN LATERAL LEADS Confirmed by SPENCER GARCIA MD ([id number]) on 05/28/2016 12:03:52 PM Referred By: Confirmed By:SPENCER GARCIA MD
[2016-05-28] MEDS: POLYETHYLENE GLYCOL 3350 119 GM BTL PO SCH (13:41)
[2016-05-28] MEDS: RIVAROXABAN 15 MG TABLET PO SCH (13:41)
--- NOTE | 2016-05-28 19:27 | PN ---
Progress Note, Physician - Current Medication List Current Medications: Active Medications Amlodipine Besylate (Norvasc -) 2.5 mg PO HS [facility] Docusate Sodium (Colace -) 100 mg PO TID [facility] Last Admin: 05/28/16 13:41 Dose: 100 mg Hydralazine HCl (Apresoline Injection -) 10 mg IVPUSH Q2H PRN PRN Reason: SBP OF 170 OR GREATER Last Admin: 05/28/16 00:58 Dose: 10 mg Ketorolac Tromethamine (Toradol Injection -) 30 mg IVPUSH Q6H PRN PRN Reason: PAIN Stop: 06/01/16 20:51 Last Admin: 05/28/16 06:19 Dose: 30 mg Levothyroxine Sodium (Synthroid -) 50 mcg PO DAILY@0700 [facility] Last Admin: 05/28/16 06:19 Dose: 50 mcg Losartan Potassium (Cozaar -) 50 mg PO DAILY@2000 [facility] Last Admin: 05/27/16 19:16 Dose: 50 mg Losartan Potassium (Cozaar -) 25 mg PO DAILY [facility] Last Admin: 05/28/16 09:09 Dose: 25 mg Metoprolol Succinate (Toprol Xl -) 25 mg PO DAILY [facility] Last Admin: 05/28/16 09:09 Dose: 25 mg Polyethylene Glycol (Miralax (For Daily Use) -) 17 gm PO DAILY [facility] Last Admin: 05/28/16 13:41 Dose: 17 grams Rivaroxaban (Xarelto -) 15 mg PO DAILY [facility] Last Admin: 05/28/16 13:41 Dose: 15 mg Rosuvastatin Calcium (Crestor -) 5 mg PO HS [facility] Last Admin: 05/27/16 21:21 Dose: 5 mg - Objective Vital Signs: Vital Signs Temperature 97.8 F 05/28/16 15:00 Pulse Rate 56 L 05/28/16 15:00 Respiratory Rate 18 05/28/16 15:00 Blood Pressure 124/85 05/28/16 15:00 O2 Sat by Pulse Oximetry (%) 97 05/28/16 12:44 Labs: CBC, BMP 05/26/16 05:35 05/26/16 05:35 INR, PTT INR 1.87 (0.82-1.09) H D 05/24/16 20:10 Problem List - Problems (1) Hypertension Code(s): I10 - ESSENTIAL (PRIMARY) HYPERTENSION (2) Afib Code(s): I48.91 - UNSPECIFIED ATRIAL FIBRILLATION (3) HLD (hyperlipidemia) Code(s): E78.5 - HYPERLIPIDEMIA, UNSPECIFIED (4) Hypothyroidism Code(s): E03.9 - HYPOTHYROIDISM, UNSPECIFIED
[2016-05-28] MEDS ORDERED: amLODIPine BESYLATE 2.5 MG TABLET (FP) PO SCH ×2 (20:00→22:00)
[2016-05-28] MEDS: LOSARTAN POTASSIUM 50 MG TABLET (FP) PO SCH (20:39)
[2016-05-28] MEDS: ROSUVASTATIN CA 5 MG TABLET (FP) PO SCH (22:04)
[2016-05-29] MEDS: DOCUSATE SODIUM 100 MG CAPSULE (FP) PO SCH ×2 (06:14→15:08)
[2016-05-29] MEDS: LEVOTHYROXINE NA 50 MCG TABLET (FP) PO SCH (06:14)
--- NOTE | 2016-05-29 08:41 | PN ---
Progress Note (short form) - Note Progress Note: Cardiology f/u TELE: Sinus alfreda Stress test: Moderate inferior ischemia w/ TID, could be indicative of multivessel CAD Patient states she has been having chest tightness at night over last 1 month BP much improved last 24 hours Chest CTA b/l Ext without edema Have recommended cath. Patient agreed. D/W son Harley and he also has agreed. Will transfer to [facility] for [facility] today.
[2016-05-29 09:59] LABS: INR 1.16 (0.82-1.09); PROTHROMBIN TIME (PATIENT) 12.8 SEC (9.98-11.88)
[2016-05-29 10:02] LABS: ACTIVATED PTT 36.3 SECONDS (26.9-34.4)
[2016-05-29] MEDS: POLYETHYLENE GLYCOL 3350 119 GM BTL PO SCH (10:57)
[2016-05-29] MEDS: METOPROLOL SUCCINATE 25 MG TAB.SR.24H (FP) PO SCH (10:57)
[2016-05-29] MEDS: LOSARTAN POTASSIUM 25 MG TABLET PO SCH (10:57)
[2016-05-29 18:32] VITALS: BP 198/77; PULSE 53; TEMP 97.6
[2016-05-29] MEDS: LOSARTAN POTASSIUM 50 MG TABLET (FP) PO SCH (19:15)
== END 2016-05-29 19:25 | disposition short-term general hospital (02) | DRG 303 ==
LOC: JER 19:47 → JERBED 05-25 00:12 → UNDOADMIN 05-25 00:31 → J4W 05-25 03:10 → J4S 05-26 10:37
PROVIDERS: ADMIT Internal Medicine; ATTEND Internal Medicine
DX: I25.110 Atherosclerotic heart disease of native coronary artery with unstable angina pectoris (principal); I24.9 Acute ischemic heart disease, unspecified; I13.0 Hypertensive heart and chronic kidney disease with heart failure and stage 1 through stage 4 chronic kidney disease, or unspecified chronic kidney disease; I50.32 Chronic diastolic (congestive) heart failure; E78.00 Pure hypercholesterolemia, unspecified; I48.91 Unspecified atrial fibrillation; E03.9 Hypothyroidism, unspecified; N18.9 Chronic kidney disease, unspecified; I34.0 Nonrheumatic mitral (valve) insufficiency
CPT/HCPCS: 36415; 71010-TC; 78452-TC; 80053; 81003; 81015; 82550; 83605; 83735; 83880; 84443; 84484; 85025; 85610; 85730; 87086; 93005; 93010; 93017; 93306-TC; 99285-25; A9502; J1245

== ENCOUNTER 2017-09-13 14:42 | Emergency (ER) | payer OTHER ==
[2017-09-13 14:47] VITALS: BP 171/79; PULSE 55; TEMP 97.3; BMI 29.2
--- NOTE | 2017-09-13 15:15 | PDOC ---
Attending Attestation - HPI HPI: 09/13/17 16:42 Patient is an 87 year old female with a significant past medical history of HTN , HLD, CAD, Afib, chronic diastolic heart failure, CKD and hyperthyroidism who presents to the ED with complaints of left knee pain that began x10 days ago. Patient reports having a history of chronic left knee pain but states it has been progressively getting worse over the past x10 days as she has been working in her garden more. She reports having a DVT study done on her left leg with results showing to be negative, but does state she has had a hx of swelling in her leg before. Patient reports left knee pain is mainly on the front part of the knee, but does intermittently radiate up to her left hip. She reports being able to walk with left knee pain but does state she is due to the intensity of the pain. Denies chest pain, Sob. Denies nausea, vomiting. Denies fevers, chills. Denies contact with sick individuals, out of state travelling. Denies dysuria, hematuria. Denies constipation, diarrhea. Denies numbness or tingling. Denies trauma to affected area. Denies any other symptoms. Allergies: Cortisone. Social history: Lives alone. No smoking. No alcohol. No illicit drugs. Surgical history: None PMD: Dr. Leonardo Dickson. <Nolberto Osborne - Last Filed: 09/13/17 16:42> - Resident Resident Name: VíctorIsrrael romero - ED Attending Attestation I have performed the following: I have examined & evaluated the patient, The case was reviewed & discussed with the resident, I agree w/resident's findings & plan, Exceptions are as noted - Physicial Exam PE: GENERAL: Awake, alert, and fully oriented, in no acute distress HEAD: No signs of trauma EYES: PERRLA, EOMI, sclera anicteric, conjunctiva clear ENT: Auricles normal inspection, hearing grossly normal, nares patent, oropharynx clear without exudates. Moist mucosa NECK: Normal ROM, supple, no lymphadenopathy, JVD, or masses LUNGS: Breath sounds equal, clear to auscultation bilaterally. No wheezes, and no crackles HEART: Regular rate and rhythm, normal S1 and S2, no murmurs, rubs or gallops ABDOMEN: Soft, nontender, normoactive bowel sounds. No guarding, no rebound. No masses EXTREMITIES: L knee with medial tenderness. No ligamentous instability. No effusion. Remainder of extremities with normal range of motion. No clubbing or cyanosis. No cords, erythema, or tenderness. 1+ edema to B/L feet. NEUROLOGICAL: Cranial nerves II through XII grossly intact. Normal speech. Motor and sensation intact. Antalgic gait. SKIN: Warm, Dry, normal turgor, no rashes or lesions noted. 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 Stable for DC home. <Angeline Prieto - Last Filed: 09/13/17 18:53>
[2017-09-13] MEDS ORDERED: ACETAMINOPHEN 325 MG TABLET (FP) PO ONE (15:26)
--- NOTE | 2017-09-13 15:34 | PDOC ---
History of Present Illness - General Chief Complaint: Pain Stated Complaint: PAIN IN LT KNEE Time Seen by Provider: 09/13/17 15:13 History Source: Patient Exam Limitations: No Limitations - History of Present Illness Initial Comments: 09/13/17 15:28 Patient is an 87F with history of CHF, afib on xarelto, HLD, hypothyroidism and HTN here today complaining of left knee pain. She states that she has had chronic issues with knee pain, but this has worsened in the past 10 days as she' s been working in the garden more. She denies any trauma. She denies history of blood clots. She states that she's had swelling in the leg before and had negative DVT study done. She states the pain is focused in the anterior section of her knee radiating up to her hip. She is able to ambulate, but is limited by pain. Denies fevers, chills, nausea, vomiting. Denies chest pain and shortness of breath. PCP: Dr Leonardo Dickson Past History - Past Medical History Allergies/Adverse Reactions: Allergies Allergy/AdvReac Type Severity Reaction Status Date / Time cortisone AdvReac Verified 09/13/17 14:47 Home Medications: Ambulatory Orders Levothyroxine [Synthroid -] 50 mcg PO DAILY 03/09/12 Rosuvastatin Calcium [Crestor] 5 mg PO HS 03/09/12 Rivaroxaban [Xarelto -] 15 mg PO DAILY 02/07/15 Losartan Potassium [Cozaar -] 50 mg PO DAILY 05/25/16 Metoprolol Succinate [Toprol Xl -] 25 mg PO DAILY 05/25/16 Amlodipine Besylate [Norvasc -] 5 mg PO DAILY 09/13/17 Bisacodyl [Dulcolax] 5 mg PO PRN PRN 09/13/17 Propylene Glycol [Systane Balance] 10 ml OP DAILY 09/13/17 Spironolactone [Aldactone] 25 mg PO DAILY 09/13/17 Triamcinolone Acetonide [Nasacort] 10.8 ml NS PRN PRN 09/13/17 Anemia: No Asthma: No Cancer: No Cardiac Disorders: Yes (A-fib) CVA: No COPD: No CHF: No Dementia: No Diabetes: No GI Disorders: Yes (constipatipn) Disorders: No HTN: Yes Hypercholesterolemia: Yes Liver Disease: No Seizures: No Thyroid Disease: Yes (hypothyroid) - Surgical History Abdominal Surgery: No Appendectomy: No Cardiac Surgery: Yes (CARDIAC CATH) Cholecystectomy: No Lung Surgery: No Neurologic Surgery: No Orthopedic Surgery: No - Immunization History Immunization Up to Date: Yes - Suicide/Smoking/Psychosocial Hx Smoking Status: No Smoking History: Never smoked Have you smoked in the past 12 months: No Number of Cigarettes Smoked Daily: 0 Hx Alcohol Use: No Drug/Substance Use Hx: No Substance Use Type: None Hx Substance Use Treatment: No Review of Systems - Review of Systems Comments:: 09/13/17 15:31 GENERAL/CONSTITUTIONAL: No fever or chills. No weakness. HEAD, EYES, EARS, NOSE AND THROAT: No change in vision. No sore throat. CARDIOVASCULAR: No chest pain or shortness of breath RESPIRATORY: No cough, wheezing, or hemoptysis. GASTROINTESTINAL: No nausea, vomiting, diarrhea or constipation. GENITOURINARY: No dysuria, frequency, or change in urination. MUSCULOSKELETAL: Positive for left knee pain. No neck or back pain. SKIN: No rash NEUROLOGIC: No headache, vertigo, loss of consciousness, or change in strength/ sensation. ENDOCRINE: No increased thirst. No abnormal weight change HEMATOLOGIC/LYMPHATIC: No anemia, easy bleeding, or history of blood clots. ALLERGIC/IMMUNOLOGIC: No hives or skin allergy. *Physical Exam - Vital Signs Last Vital Signs Temp Pulse Resp BP Pulse Ox 97.3 F L 55 L 18 171/79 99 09/13/17 14:43 09/13/17 14:43 09/13/17 14:43 09/13/17 14:43 09/13/17 14:43 - Physical Exam Comments: 09/13/17 15:32 GENERAL: Awake, alert, and fully oriented, in no acute distress L LEG: Tender to palpation along medial aspect of proximal tibia. ROM limited at extremes by pain. Nontender patella, lateral knee. Neurovascularly intact in foot. Negative efrem's sign. Left leg swollen compared to right. Nonerythematous. HEAD: No signs of trauma, normocephalic, atraumatic EYES: PERRLA, EOMI, sclera anicteric, conjunctiva clear ENT: Auricles normal inspection, hearing grossly normal, nares patent, oropharynx clear without exudates. Moist mucosa NECK: Normal ROM, supple, no lymphadenopathy, JVD, or masses LUNGS: No distress, speaks full sentences, clear to auscultation bilaterally HEART: Regular rate and rhythm, normal S1 and S2, no murmurs, rubs or gallops, peripheral pulses normal and equal bilaterally. ABDOMEN: Soft, nontender, normoactive bowel sounds. No guarding, no rebound. No masses EXTREMITIES: Normal inspection, Normal range of motion, no edema. No clubbing or cyanosis. NEUROLOGICAL: Cranial nerves II through XII grossly intact. Normal speech, no focal sensorimotor deficits SKIN: Warm, Dry, normal turgor, no rashes or lesions noted. ED Treatment Course - RADIOLOGY Radiology Studies Ordered: Category Date Time Status KNEE 3 POS-LEFT [RAD] Stat Radiology 09/13/17 15:26 Ordered DUPLEX VASCUL US-1 LEG [US] Stat Ultrasound 09/13/17 15:26 Ordered Medical Decision Making - Medical Decision Making 09/13/17 15:34 Patient is 87F with history of CHF, HLD, hypothyroidism, HTN, afib on xarelto here today with left knee pain. Vital signs stable and normal. No signs of acute arterial blockage. Left leg swollen. Differential is weighted towards exacerbation of chronic arthritis, but will rule out fracture and DVT. Will give tylenol for pain as patient has tried ibuprofen. 09/13/17 17:51 X-ray shows arthritis, no fractures. USS shows burce's cyst, no clots. Will give percocet for pain control. Will send home with outpatient percocet. Patient given fall precautions, return precautions. *DC/Admit/Observation/Transfer Diagnosis at time of Disposition: Knee pain - Discharge Dispostion Disposition: HOME Condition at time of disposition: Good Decision to Admit order: No - Referrals Referrals: Leonardo Dickson MD [Primary Care Provider] - - Patient Instructions Printed Discharge Instructions: DI for Knee Pain Additional Instructions: Please return if you have any new, worsening or concerning symptoms. Please follow up with your primary care physician and orthopedic doctor. If you do not have an orthopedic doctor, one has been provided for you in your paperwork. - Post Discharge Activity
[2017-09-13] MEDS ORDERED: ACETAMINOPHEN 325 MG TABLET (FP) ONE (15:36)
== END 2017-09-13 18:25 | disposition home or self-care (01) ==
LOC: JER 14:42
DX: M71.22 Synovial cyst of popliteal space [Baker], left knee (principal); M13.862 Other specified arthritis, left knee; I25.10 Atherosclerotic heart disease of native coronary artery without angina pectoris; Z98.61 Coronary angioplasty status; I13.0 Hypertensive heart and chronic kidney disease with heart failure and stage 1 through stage 4 chronic kidney disease, or unspecified chronic kidney disease; N18.9 Chronic kidney disease, unspecified; I50.32 Chronic diastolic (congestive) heart failure; E03.9 Hypothyroidism, unspecified; I48.91 Unspecified atrial fibrillation; Z79.01 Long term (current) use of anticoagulants
CPT/HCPCS: 73562-TC-LT-FY; 93971-TC; 99282-25